=== PATIENT | female | born 1940 | race African-American/Black ===

== ENCOUNTER 2016-12-04 06:57 | Emergency (ER) | payer MEDICARE, OTHER ==
[~2016-12-04] VITALS: Ht 162.6 cm; Wt 78.9 kg
[~2016-12-04 06:57] MED LIST: AMLO2.5T PO; ASPI-306; ATOR40TA52 PO; BUPR100T14; CALC-317 OR; DULO60CA; FOLIPOW28; LAMO25CH PO; METH2.5T3; QUET200T44 PO
[2016-12-04 07:31] LABS: Urine Bilirubin Negative (Negative); Urine Blood Negative /uL (Negative); Urine Color Yellow (Yellow); Urine Glucose Normal (Normal); Urine Ketone Negative (Negative); Urine Nitrite Negative (Negative); Urine RBC <1 /hpf (0 - 4); Urine Squamous Epithelial Cell FEW /hpf (<5); Urine Urobilinogen Normal (Negative); Urine pH 6.5 (5.0-8.0)
[2016-12-04] MEDS ORDERED: NITROFURANTOIN (MONO) 100 mg CAP PO ONE (11:15)
[2016-12-04] MEDS ORDERED: LORazepam 0.5 MG TAB PO ONE (11:15)
[2016-12-04] MEDS ORDERED: cloNIDine HCL 0.1 MG TAB PO ONE (12:00)
[2016-12-04 12:20] VITALS: BP 125/77
== END 2016-12-04 12:44 | disposition home or self-care (01) ==
LOC: ER 06:57
DX: N39.0 Urinary tract infection, site not specified (principal); I10 Essential (primary) hypertension; F41.9 Anxiety disorder, unspecified; K21.9 Gastro-esophageal reflux disease without esophagitis; F32.9 Major depressive disorder, single episode, unspecified; E78.5 Hyperlipidemia, unspecified; Z90.710 Acquired absence of both cervix and uterus; Z88.0 Allergy status to penicillin; Z79.82 Long term (current) use of aspirin; Z79.899 Other long term (current) drug therapy
CPT/HCPCS: 81001